=== PATIENT | female | born 1965 | race African-American/Black ===

== ENCOUNTER → 2018-08-19 | Outpatient (CLI) | payer BC, OTHER | LOC: RAD 01:14 | DX: Z12.31 Encounter for screening mammogram for malignant neoplasm of breast (principal) ==

== ENCOUNTER → 2019-06-16 | Outpatient (CLI) | payer BC, OTHER | LOC: ULTRA 10:51 → RAD 10:51 | DX: N63.20 Unspecified lump in the left breast, unspecified quadrant (principal); R92.2 Inconclusive mammogram ==

== ENCOUNTER → 2020-08-03 | Outpatient (CLI) | payer BC, OTHER | LOC: RAD 07:46 → BC 07:55 | PROVIDERS: ATTEND Family Medicine | DX: Z12.31 Encounter for screening mammogram for malignant neoplasm of breast (principal) ==

== ENCOUNTER → 2021-09-14 | Outpatient (CLI) | payer BC, OTHER | LOC: BC 09:22 | PROVIDERS: ATTEND Family Medicine | DX: N60.02 Solitary cyst of left breast (principal); N63.21 Unspecified lump in the left breast, upper outer quadrant; N64.52 Nipple discharge ==